=== PATIENT | male | born 1965 | race Caucasian/White ===

== ENCOUNTER 2023-06-26 07:51 | Outpatient (OUT) | payer BC, SELFPAY ==
[2023-06-26 08:19] LABS: Hematocrit 42.9 % (42.0-54.0); Hemoglobin 13.9 g/dL (14.0-18.0); Mean Corpuscular HGB Conc 32.4 g/dL (29.9-35.2); Mean Corpuscular Hemoglobin 29.4 pg (25.9-34.0); Mean Corpuscular Volume 90.9 fL (80.0-94.0); Mean Platelet Volume 11.2 fL (9.5-13.5); Platelet Count 157 10^3/uL (150-450); Red Blood Count 4.72 10^6/uL (4.70-6.10); Red Cell Distribution Width 12.5 % (11.0-15.0); White Blood Count 18.4 10^3/uL (4.0-11.0)
[2023-06-26 08:37] LABS: Estimated Average Glucose 278 mg/dL; Glycohemoglobin A1C 11.3 % (4.5-6.2)
[2023-06-26 09:08] LABS: Alanine Aminotransferase 32 U/L (16-63); Albumin Globulin Ratio 1.1; Albumin Level 3.6 g/dL (3.4-5.0); Alkaline Phosphatase 65 U/L (46-116); Anion Gap 12.9; Aspartate Amino Transferase 15 U/L (15-37); BUN Creatinine Ratio 17.4; Calcium 8.8 mg/dL (8.5-10.1); Carbon Dioxide 25.1 mmol/L (21.0-32.0); Chloride 105 mmol/L (98-107); Chol HDL Ratio 3.4; Cholesterol 153 mg/dL (<=200); Estimated GFR (African America >60 (>=60); Estimated GFR (Non-African Ame 53 (>=60); Globulin 3.2 g/dL; Glucose 155 mg/dL (74-106); HDL Cholesterol 45 mg/dL (40-60); Sodium 139 mmol/L (136-145); Thyroid Stimulating Hormone 4.784 uIU/mL (0.358-3.740); Total Protein 6.8 g/dL (6.4-8.2); Triglycerides 70 mg/dL (<=150)
[2023-06-26 09:13] LABS: Prostate Specific Antigen Scrn 0.74 ng/mL (<=4.00)
[2023-06-26 11:37] LABS: Eosinophils Absolute Manual 0.18 10^3/uL (0.00-0.70); Lymphocytes Absolute Manual 13.98 10^3/uL (1.20-3.80); Monocytes Absolute Manual 0.55 10^3/uL (0.30-0.80); Segmented Neut Absolute Manual 3.68 10^3/uL (1.4-6.5); Smudge Cells SEEN
== END 2023-06-26 07:52 | disposition home or self-care (01) ==
PROVIDERS: PCP Family Medicine; Visit Provider Family Medicine
DX: Z00.00 Encounter for general adult medical examination without abnormal findings (principal)
CPT/HCPCS: 36415; 80053; 80061; 83036; 84436; 84443; 84481; 85007; 85027; G0103

== ENCOUNTER 2024-06-26 07:56 | Outpatient (OUT) | payer OTHER, SELFPAY ==
--- OUTSIDE RECORDS SUMMARY | 2024-06-26 08:19 | XMS_ITS | CCD ---
Author Organization [facility] Care Team Providers Care Carbon Cleaner Name Role Phone DR RADHA MENDEZ Admitting Unavailable DR RADHA MENDEZ Attending Unavailable DR RADHA MENDEZ Primary Care Unavailable DR RADHA MENDEZ Consulting Unavailable DR RADHA MENDEZ Admitting Unavailable DR RADHA MENDEZ Attending Unavailable DR RADHA MENDEZ Primary Care Unavailable DR RADHA MENDEZ Consulting Unavailable Allergies Allergy Classification Reported Allergen(s) Allergy Type Date of Onset Reaction(s) Facility (1 source) Cod liver oil Drug allergy (disorder) 02-14-2013 [facility] (1 source) Iodine Drug Allergy 02-14-2013 [facility] (1 source) Shellfish Drug allergy (disorder) 11-28-2013 [facility] (1 source) Sulfonamides (Antibiotic) Drug allergy (disorder) 02-14-2013 [facility] Problems Active Problems Problem Classification Problem Date Documented Da te Episodic/Chronic Chronic kidney disease (1 source) Chronic kidney disease, stage 2 (mild); Translations: [CHRONIC KIDNEY DISEASE STAGE 2 MILD] Onset: 04-15-2022 Chronic Deficiency and other anemia (1 source) Anemia, unspecified; Translations: [ANEMIA UNSPECIFIED] Onset: 04-15-2022 Episodic Diabetes mellitus without complication (1 source) Type 2 diabetes mellitus without complications; Translations: [TYPE 2 DM WITHOUT COMPLICATIONS] Onset: 06-19-2021 Chronic Diabetes mellitus without complication (1 source) Other abnormal glucose; Translations: [OTHER ABNORMAL GLUCOSE] Onset: 04-15-2022 Episodic Leukemias (5 sources) Chronic lymphocytic leukemia of B-cell type not having achieved remission; Translations: [CLL B-CELL TYPE NOT ACHIEVED REMISS] Onset: 06-19-2021 Chronic Past or Other Problems Problem Classification Problem Date Documented Da te Episodic/Chronic Malaise and fatigue (4 sources) Other fatigue; Translations: [OTHER FATIGUE] Onset: 06-09-2021 Episodic Results Test Name Value Interpretation Reference Range Facility CBC W MANUAL DIFFon 04-07-20 ATYPICAL LYMPH # Normal [facility] Comment on above: Performed By: #### C ANÍBAL #### [facility] [address] [place] [address] Dr. Netta Mcneal ATYPICAL LYMPH % Normal [facility] Comment on above: Performed By: #### C ANÍBAL #### [facility] [address] [place] [address] Dr. Netta Mcneal BAND # Normal 0.0-0.3 [facility] Comment on above: Performed By: #### C ANÍBAL #### [facility] [address] [place] [address] Dr. Netta Mcneal BAND % Normal 0-5 [facility] Comment on above: Performed By: #### C ANÍBAL #### [facility] [address] [place] [address] Dr. Netta Mcneal BASOM # 0.00 103/ul Normal 0.00-0.10 [facility] Comment on above: Performed By: #### C ANÍBAL #### [facility] [address] [place] [address] Dr. Netta Mcneal BASOM % 0.0 % Critically low 0.2-2.0 [facility] Comment on above: Performed By: #### C ANÍBAL #### [facility] [address] [place] [address] Dr. Netta Mcneal BLAST # Normal [facility] Comment on above: Performed By: #### C ANÍBAL #### [facility] [address] [place] [address] Dr. Netta Mcneal BLAST % Normal [facility] Comment on above: Performed By: #### C ANÍBAL #### [facility] [address] [place] [address] Dr. Netta Mcneal CORRECTED WBC Normal 4.0-11.0 [facility] Comment on above: Performed By: #### C ANÍBAL #### [facility] [address] [place] [address] Dr. Netta Mcneal EOS # 0.20 103/ul Normal 0.00-0.70 [facility] Comment on above: Performed By: #### C BCKIKI #### [facility] [address] [address] [address] Netta Mcneal EOS% 1.0 % Normal 0.9-7.0 [facility] Comment on above: Performed By: #### C ANÍBAL #### [facility] [address] [address] [address] Netta Mcneal HCT 41.9 % Critically low 42.0-54.0 [facility] Comment on above: Performed By: #### C ANÍBAL #### [facility] [address] [address] [address] Netta Mcneal HGB 14.0 g/dl Normal 14.0-18.0 [facility] Comment on above: Performed By: #### C ANÍBAL #### [facility] [address] [address] [address] Netta Mcneal LYMPHM # 14.43 103/ul Critically high 1.20-3.80 [facility] Comment on above: Performed By: #### C ANÍBAL #### [facility] [address] [address] [address] Netta Mcneal LYMPHM% 74.0 % Critically high 20.5-60.0 [facility] Comment on above: Performed By: #### C ANÍBAL #### [facility] [address] [address] [address] Netta Mcneal MCH 29.9 pg Normal 25.9-34.0 [facility] Comment on above: Performed By: #### C BCKIKI #### [facility] [address] [address] [address] Netta Mcneal MCHC 33.4 g/dl Normal 29.9-35.2 [facility] Comment on above: Performed By: #### C ANÍBAL #### [facility] [address] [address] [address] Netta Mcneal MCV 89.3 fL Normal 80.0-94.0 [facility] Comment on above: Performed By: #### C ANÍBAL #### [facility] [address] [place] [address] Dr. Netta Mcneal METAMYELOCYTE # Normal [facility] Comment on above: Performed By: #### C DIGNAMAN #### [facility] [address] [place] [address] Dr. Netta Mcneal METAMYELOCYTE % Normal [facility] Comment on above: Performed By: #### C ANÍBAL #### [facility] [address] [place] [address] Dr. Netta Mcneal MONOM# 0.58 103/ul Normal 0.30-0.80 [facility] Comment on above: Performed By: #### C ANÍBAL #### [facility] [address] [place] [address] Dr. Netta Mcneal MONOM% 3.0 % Normal 1.7-12.0 [facility] Comment on above: Performed By: #### C ANÍBAL #### [facility] [address] [place] [address] Dr. Netta Mcneal MPV 11.0 fL Normal 9.5-13.5 [facility] Comment on above: Performed By: #### C ANÍBAL #### [facility] [address] [place] [address] Dr. Netta Mcneal MYELOCYTE # Normal [facility] Comment on above: Performed By: #### C ANÍBAL #### [facility] [address] [place] [address] Dr. Netta Mcneal MYELOCYTE % Normal [facility] Comment on above: Performed By: #### C ANÍBAL #### [facility] [address] [place] [address] Dr. Netta Mcneal NRBC Normal [facility] Comment on above: Performed By: #### C ANÍBAL #### [facility] [address] [place] [address] Dr. Netta Mcneal PLT 172 103/ul Normal 150-450 [facility] Comment on above: Performed By: #### C ANÍBAL #### [facility] [address] [place] [address] Dr. Netta Mcneal RBC 4.69 106/ul Critically low 4.70-6.10 [facility] Comment on above: Performed By: #### C BCKIKI #### [facility] [address] [address] [address] Netta Mcneal RDW 13.0 % Normal 11.0-15.0 [facility] Comment on above: Performed By: #### C BCMAN #### [facility] [address] [address] [address] Netta Mcneal SEG # 4.29 103/ul Normal 1.40-6.50 [facility] Comment on above: Performed By: #### C BCKIKI #### [facility] [address] [place] [address] Dr. Netta Mcneal SEG % 22.0 % Critically low 43.0-75.0 [facility] Comment on above: Performed By: #### C ANÍBAL #### [facility] [address] [place] [address] Dr. Netta Mcneal SMUDGE CELLS SEEN Normal [facility] Comment on above: Performed By: #### C BCKIKI #### [facility] [address] [address] [address] Netta Mcneal WBC 19.5 103/ul Critically high 4.0-11.0 [facility] Comment on above: Performed By: #### C BCKIKI #### [facility] [address] [address] [address] Netta Mcneal FREE THYROXINE INDEX T7on FTI 2.51 Normal 1.30-4.50 [facility] Comment on above: Performed By: #### C MP, T7, TSH #### [facility] [address] [address] [address] Netta Mcneal T3U 38.0 % Normal 33.0-40.0 [facility] Comment on above: Performed By: #### C MP, T7, TSH #### [facility] [address] [address] [address] Netta Mcneal T4 [Mass/Vol] 6.60 ug/dL Normal 4.50-12.10 [facility] Comment on above: Performed By: #### C MP, T7, TSH #### [facility] [address] [address] [address] Netta Mcneal GLYCOHEMOGLOBIN A1Con 2021 ADA RECOMMENDATION SEE BELOW Normal [facility] Comment on above: Result Comment: ADA RECOMMENDED LIMIT 4.0 - 6.0 ADA THERAPEUTIC TARGET < 7.0 ACTION SUGGESTED > 7.0 Performed By: #### A 1C #### [facility] [address] [address] [address] Netta Mcneal Glucose [Mass/Vol] 269 mg/dL Normal [facility] Comment on above: Performed By: #### A 1C #### [facility] [address] [place] [address] Dr. Netta Mcneal HbA1c (Bld) [Mass fraction] 11.0 % Critically high 4.5-6.2 [facility] Comment on above: Performed By: #### A 1C #### [facility] [address] [place] [address] Dr. Netta Mcneal IRONon 04-07-2022 Iron [Mass/Vol] 76.0 ug/dL Normal 65.0-175.0 [facility] Comment on above: Performed By: #### I VERNON #### [facility] [address] [place] [address] Dr. Netta Mcneal PROF 14(COMP METB)on 022 Albumin [Mass/Vol] 3.8 g/dL Normal 3.4-5.0 [facility] Comment on above: Performed By: #### C MP, T7, TSH #### [facility] [address] [address] [address] Netta Mcneal Albumin/Globulin [Mass ratio] 1.3 {ratio} Normal [facility] Comment on above: Performed By: #### C MP, T7, TSH #### [facility] [address] [address] [address] Netta Mcneal ALP [Catalytic activity/Vol] 63 U/L Normal 46-116 [facility] Comment on above: Performed By: #### C MP, T7, TSH #### [facility] [address] [address] [address] Netta Mcneal ALT [Catalytic activity/Vol] 30 U/L Normal 16-63 [facility] Comment on above: Performed By: #### C MP, T7, TSH #### [facility] [address] [address] [address] Netta Mcneal Anion gap [Moles/Vol] 13.4 mmol/L Normal [facility] Comment on above: Performed By: #### C MP, T7, TSH #### [facility] [address] [address] [address] Netta Mcneal AST [Catalytic activity/Vol] 18 U/L Normal 15-37 [facility] Comment on above: Performed By: #### C MP, T7, TSH #### [facility] [address] [place] [address] Dr. Netta Mcneal Bilirubin [Mass/Vol] 0.8 mg/dL Normal 0.2-1.0 [facility] Comment on above: Performed By: #### C MP, T7, TSH #### [facility] [address] [address] [address] Netta Mcneal Calcium [Mass/Vol] 8.8 mg/dL Normal 8.5-10.1 [facility] Comment on above: Performed By: #### C MP, T7, TSH #### [facility] [address] [address] [address] Netta Mcneal Chloride [Moles/Vol] 104 mmol/L Normal 98-107 [facility] Comment on above: Performed By: #### C MP, T7, TSH #### [facility] [address] [address] [address] Netta Mcneal CO2 [Moles/Vol] 25.7 mmol/L Normal 21.0-32.0 [facility] Comment on above: Performed By: #### C MP, T7, TSH #### [facility] [address] [address] [address] Netta Mcneal Creatinine [Mass/Vol] 1.13 mg/dL Normal 0.70-1.30 [facility] Comment on above: Performed By: #### C MP, T7, TSH #### [facility] [address] [address] [address] Netta Mcneal EGFR-AF LAO >60 Normal >=60 [facility] Comment on above: Performed By: #### C MP, T7, TSH #### [facility] [address] [address] [address] Netta Mcneal EGFR-NON AF LAO >60 Normal >=60 [facility] Comment on above: Performed By: #### C MP, T7, TSH #### [facility] [address] [address] [address] Netta Mcneal Globulin (S) [Mass/Vol] 3.0 g/dL Normal [facility] Comment on above: Performed By: #### C MP, T7, TSH #### [facility] [address] [address] [address] Netta Mcneal Glucose [Mass/Vol] 207 mg/dL Critically high 74-106 [facility] Comment on above: Performed By: #### C MP, T7, TSH #### [facility] [address] [address] [address] Netta Mcneal Potassium [Moles/Vol] 4.1 mmol/L Normal 3.5-5.1 [facility] Comment on above: Performed By: #### C MP, T7, TSH #### [facility] [address] [address] [address] Netta Mcneal Protein [Mass/Vol] 6.8 g/dL Normal 6.4-8.2 [facility] Comment on above: Performed By: #### C MP, T7, TSH #### [facility] [address] [address] [address] Netta Mcneal Sodium [Moles/Vol] 139 mmol/L Normal 136-145 [facility] Comment on above: Performed By: #### C MP, T7, TSH #### [facility] [address] [address] [address] Netta Mcneal Urea nitrogen [Mass/Vol] 19.0 mg/dL Critically high 7.0-18.0 [facility] Comment on above: Performed By: #### C MP, T7, TSH #### [facility] [address] [address] [address] Netta Mcneal Urea nitrogen/Creatinine [Mass ratio] 16.8 mg/mg Normal [facility] Comment on above: Performed By: #### C MP, T7, TSH #### [facility] [address] [address] [address] Netta Mcneal TSHon 04-07-2022 TSH 3.469 uIU/mL Normal 0.358-3.740 [facility] Comment on above: Performed By: #### C MP, T7, TSH #### [facility] [address] [place] [address] Dr. Netta Mcneal CBC W MANUAL DIFFon 06-09-19 22 ATYPICAL LYMPH # 3.05 103/ul Normal [facility] Comment on above: Performed By: #### P ERSMR, CBCMAN #### [facility] [address] [place] [address] Dr. Netta Mcneal ATYPICAL LYMPH % 14 % Normal [facility] Comment on above: Performed By: #### P ERSMR, CBCMAN #### [facility] [address] [place] [address] Dr. Netta Mcneal BAND # Normal 0.0-0.3 [facility] Comment on above: Performed By: #### P ERSMR, CBCMAN #### [facility] [address] [place] [address] Dr. Netta Mcneal BAND % Normal 0-5 [facility] Comment on above: Performed By: #### P ERSMR, CBCMAN #### [facility] [address] [place] [address] Dr. Netta Mcneal BASOM # 0.00 103/ul Normal 0.00-0.10 [facility] Comment on above: Performed By: #### P ERSMR, CBCMAN #### [facility] [address] [place] [address] Dr. Netta Mcneal BASOM % 0.0 % Critically low 0.2-2.0 [facility] Comment on above: Performed By: #### P ERSMR, CBCMAN #### [facility] [address] [address] [address] Netta Mcneal BLAST # Normal [facility] Comment on above: Performed By: #### P ERSMR, CBCMAN #### [facility] [address] [address] [address] Netta Mcneal BLAST % Normal [facility] Comment on above: Performed By: #### P ERSMR, CBCMAN #### [facility] [address] [address] [address] Netta Mcneal CORRECTED WBC Normal 4.0-11.0 [facility] Comment on above: Performed By: #### P ERSMR, CBCMAN #### [facility] [address] [place] [address] Dr. Netta Mcneal EOS # 0.44 103/ul Normal 0.00-0.70 [facility] Comment on above: Performed By: #### P ERSMR, CBCMAN #### [facility] [address] [place] [address] Dr. Netta Mcneal EOS% 2.0 % Normal 0.9-7.0 [facility] Comment on above: Performed By: #### P ERSMR, CBCMAN #### [facility] [address] [place] [address] Dr. Netta Mcneal HCT 42.4 % Normal 42.0-54.0 [facility] Comment on above: Performed By: #### P ERSMR, CBCMAN #### [facility] [address] [place] [address] Dr. Netta Mcneal HGB 14.4 g/dl Normal 14.0-18.0 [facility] Comment on above: Performed By: #### P ERSMR, CBCMAN #### [facility] [address] [place] [address] Dr. Netta Mcneal LYMPHM # 13.08 103/ul Critically high 1.20-3.80 [facility] Comment on above: Performed By: #### P ERSMR, CBCMAN #### [facility] [address] [address] [address] Netta Mcneal LYMPHM% 60.0 % Normal 20.5-60.0 [facility] Comment on above: Performed By: #### P ERSMR, CBCMAN #### [facility] [address] [address] [address] Netta Mcneal MCH 30.6 pg Normal 25.9-34.0 [facility] Comment on above: Performed By: #### P ERSMR, CBCMAN #### [facility] [address] [address] [address] Netta Mcneal MCHC 34.0 g/dl Normal 29.9-35.2 [facility] Comment on above: Performed By: #### P ERSMR, CBCMAN #### [facility] [address] [address] [address] Netta Mcneal MCV 90.2 fL Normal 80.0-94.0 [facility] Comment on above: Performed By: #### P ERSMR, CBCMAN #### [facility] [address] [address] [address] Netta Mcneal METAMYELOCYTE # Normal [facility] Comment on above: Performed By: #### P ERSMR, CBCMAN #### [facility] [address] [address] [address] Netta Mcneal METAMYELOCYTE % Normal [facility] Comment on above: Performed By: #### P ERSMR, CBCMAN #### [facility] [address] [address] [address] Netta Mcneal MONOM# 0.44 103/ul Normal 0.30-0.80 [facility] Comment on above: Performed By: #### P ERSMR, CBCMAN #### [facility] [address] [address] [address] Netta Mcneal MONOM% 2.0 % Normal 1.7-12.0 [facility] Comment on above: Performed By: #### P ERSMR, CBCMAN #### [facility] [address] [address] [address] Netta Mcneal MPV 11.1 fL Normal 9.5-13.5 [facility] Comment on above: Performed By: #### P ERSMR, CBCMAN #### [facility] [address] [address] [address] Netta Mcneal MYELOCYTE # Normal [facility] Comment on above: Performed By: #### P ERSMR, CBCMAN #### [facility] [address] [address] [address] Netta Mcneal MYELOCYTE % Normal [facility] Comment on above: Performed By: #### P ERSMR, CBCMAN #### [facility] [address] [address] [address] Netta Mcneal NRBC Normal [facility] Comment on above: Performed By: #### P ERSMR, CBCMAN #### [facility] [address] [address] [address] Netta Mcneal PLT 164 103/ul Normal 150-450 [facility] Comment on above: Performed By: #### P ERSMR, CBCMAN #### [facility] [address] [address] [address] Netta Mcneal RBC 4.70 106/ul Normal 4.70-6.10 [facility] Comment on above: Performed By: #### P ERSMR, CBCMAN #### [facility] [address] [address] [address] Netta Mcneal RDW 12.4 % Normal 11.0-15.0 [facility] Comment on above: Performed By: #### P ERSMR, CBCMAN #### [facility] [address] [address] [address] Netta Mcneal SEG # 4.80 103/ul Normal 1.40-6.50 [facility] Comment on above: Performed By: #### P ERSMR, CBCMAN #### [facility] [address] [place] [address] Dr. Netta Mcneal SEG % 22.0 % Critically low 43.0-75.0 [facility] Comment on above: Performed By: #### P ERSMR, CBCMAN #### [facility] [address] [address] [address] Netta Mcneal WBC 21.8 103/ul Critically high 4.0-11.0 [facility] Comment on above: Performed By: #### P ERSMR, CBCMAN #### [facility] [address] [address] [address] Netta Mcneal GLYCOHEMOGLOBIN A1Con 2021 ADA RECOMMENDATION ADA THERAPEUTIC TARG ET 6.0 - 7.0 ACTION SUGGESTED > 7.0 Normal [facility] Comment on above: Performed By: #### A 1C #### [facility] [address] [address] [address] Netta Mcneal Glucose [Mass/Vol] 226 mg/dL Normal [facility] Comment on above: Performed By: #### A 1C #### [facility] [address] [place] [address] Dr. Netta Mcneal HbA1c (Bld) [Mass fraction] 9.5 % Critically high <=6.0 [facility] Comment on above: Performed By: #### A 1C #### [facility] [address] [address] [address] Netta Mcneal PERIPHERAL SMEARon 2 Pathologist Cyto stain Nom (Cvx/Vag) [ID] DR. ARMINDA BRYAN Normal [facility] Comment on above: Result Comment: REVI EW OF PERIPHERAL SMEAR REVEALS NORMAL RBCS AND PLATELETS. THERE IS LEUKOCYTOSIS WITH LYMPHOCYTOSIS. THE LYMPHOCYTES HAVE SOME REACTIVE CHANGES, HOWEVER, IF REACTIVE CAUSES ARE EXCLUDED AND/OR LYMPHOCYTOSIS PERSISTS, FURTHER EVALUATION WITH FLOW CYTOMETRIC ANALYSIS OF PERIPHERAL BLOOD IS RECOMMENDED TO EVALUATE FOR A CHRONIC LYMPHOPROLIFERATIVE DISORDER. NO IMMATURE BLASTS ARE SEEN. CLINICAL CORRELATION IS RECOMMENDED. CPT: 26611 Performed By: #### P ERSMR, CBCKIKI #### [facility] [address] [place] [address] Dr. Netta Mcneal PROF 14(COMP METB)on 022 Albumin [Mass/Vol] 3.9 g/dL Normal 3.5-5.0 [facility] Comment on above: Performed By: #### C MP #### [facility] [address] [place] [address] Dr. Netta Mcneal Albumin/Globulin [Mass ratio] 1.3 {ratio} Normal [facility] Comment on above: Performed By: #### C MP #### [facility] [address] [place] [address] Dr. Netta Mcneal ALP [Catalytic activity/Vol] 66 U/L Normal 38-126 [facility] Comment on above: Performed By: #### C MP #### [facility] [address] [place] [address] Dr. Netta Mcneal ALT [Catalytic activity/Vol] 31 U/L Normal 21-72 [facility] Comment on above: Performed By: #### C MP #### [facility] [address] [place] [address] Dr. Netta Mcneal Anion gap [Moles/Vol] 10.8 mmol/L Normal [facility] Comment on above: Performed By: #### C MP #### [facility] [address] [place] [address] Dr. Netta Mcneal AST [Catalytic activity/Vol] 16 U/L Critically low 17-59 [facility] Comment on above: Performed By: #### C MP #### [facility] [address] [place] [address] Dr. Netta Mcneal Bilirubin [Mass/Vol] 1.0 mg/dL Normal 0.2-1.3 [facility] Comment on above: Performed By: #### C MP #### [facility] [address] [place] [address] Dr. Netta Mcneal Calcium [Mass/Vol] 8.6 mg/dL Normal 8.4-10.2 [facility] Comment on above: Performed By: #### C MP #### [facility] [address] [place] [address] Dr. Netta Mcneal Chloride [Moles/Vol] 105 mmol/L Normal 98-107 [facility] Comment on above: Performed By: #### C MP #### [facility] [address] [place] [address] Dr. Netta Mcneal CO2 [Moles/Vol] 26.9 mmol/L Normal 22.0-30.0 [facility] Comment on above: Performed By: #### C MP #### [facility] [address] [place] [address] Dr. Netta Mcneal Creatinine [Mass/Vol] 1.09 mg/dL Normal 0.66-1.25 [facility] Comment on above: Performed By: #### C MP #### [facility] [address] [place] [address] Dr. Netta Mcneal EGFR-AF LAO >60 Normal >=60 [facility] Comment on above: Performed By: #### C MP #### [facility] [address] [address] [address] Netta Mcneal EGFR-NON AF LAO >60 Normal >=60 [facility] Comment on above: Performed By: #### C MP #### [facility] [address] [place] [address] Dr. Netta Mcneal Globulin (S) [Mass/Vol] 3.0 g/dL Normal [facility] Comment on above: Performed By: #### C MP #### [facility] [address] [place] [address] Dr. Netta Mcneal Glucose [Mass/Vol] 131 mg/dL Critically high 74-106 [facility] Comment on above: Performed By: #### C MP #### [facility] [address] [place] [address] Dr. Netta Mcneal Potassium [Moles/Vol] 3.7 mmol/L Normal 3.4-5.0 [facility] Comment on above: Performed By: #### C MP #### [facility] [address] [place] [address] Dr. Netta Mcneal Protein [Mass/Vol] 6.9 g/dL Normal 6.1-8.2 [facility] Comment on above: Performed By: #### C MP #### [facility] [address] [place] [address] Dr. Netta Mcneal Sodium [Moles/Vol] 139 mmol/L Normal 137-145 [facility] Comment on above: Performed By: #### C MP #### [facility] [address] [place], [place] [address] Dr. Netta Mcneal Urea nitrogen [Mass/Vol] 18.0 mg/dL Normal 9.0-20.0 [facility] Comment on above: Performed By: #### C MP #### [facility] [address] [place], [place] [address] Dr. Netta Mcneal Urea nitrogen/Creatinine [Mass ratio] 16.5 mg/mg Normal [facility] Comment on above: Performed By: #### C MP #### [facility] [address] [place], [place] [address] Dr. Netta Mcneal Encounters Encounter Date Encounter Type Care Provider Facility Start: 04-07-2022 End: 04-08-[address] RADHA MENDEZ Facility: Start: 06-09-2021 End: 06-09-[address] RADHA MENDEZ Facility:[facility] Payers Date Payer Category Payer Unknown [id number] 1965 Unknown [id number] 1960 Unknown [id number] 1960 Unknown [id number] Summary Purpose Family History No Family History Records Found Advance Directives No Advanced Directives Records Found Additional Source Comments (unrecognized sect ion and content) No Status Records Found INFORMATION SOURCE (unrecogn ized section and content) DATE CREATED AUTHOR 04/15/2022 [facility] FOR RECORDS PERTAINING TO PATIENTS WHO ARE OR HAVE BEEN ENROLLED IN A CHEMICAL DEPENDENCY/SUBSTANCEABUSE PROGRAM, SOME INFORMATION MAY BE OMITTED. This clinical summary was aggregated from multiple sources. Caution should be exercised in using it in the provision of clinical care. This summary normalizes information from multiple sources, and as a consequence, information in this document may materially change the coding, format and clinical context of patient data. In addition, data may be omitted in some cases. CLINICAL DECISIONS SHOULD BE BASED ON THE PRIMARY CLINICAL RECORDS. [facility] [employer] [facility]. provides no warranty or guarantee of the accuracy or completeness of information in this document.
[2024-06-26 08:21] LABS: Basophils Absolute Auto 0.1 10^3/uL (0.0-0.1); Basophils Percent Auto 0.3 % (0.2-2.0); Eosinophils Absolute Auto 0.2 10^3/uL (0.0-0.7); Eosinophils Percent Auto 0.9 % (0.9-7.0); Hematocrit 43.4 % (42.0-54.0); Hemoglobin 14.7 g/dL (14.0-18.0); Immature Granulocytes Abs Auto 0.09 10^3/uL (0.00-0.03); Immature Granulocytes Pct Auto 0.4 % (0.0-0.5); Lymphocytes Absolute Auto 15.8 10^3/uL (1.2-3.8); Lymphocytes Percent Auto 72.8 % (20.5-60.0); Mean Corpuscular HGB Conc 33.9 g/dL (29.9-35.2); Mean Corpuscular Hemoglobin 30.3 pg (25.9-34.0); Mean Corpuscular Volume 89.5 fL (80.0-94.0); Mean Platelet Volume 11.6 fL (9.5-13.5); Monocytes Absolute Auto 0.8 10^3/uL (0.3-0.8); Monocytes Percent Auto 3.8 % (1.7-12.0); Neutrophils Absolute Auto 4.7 10^3/uL (1.4-6.5); Neutrophils Percent Auto 21.8 % (43.0-75.0); Platelet Count 163 10^3/uL (150-450); Red Blood Count 4.85 10^6/uL (4.70-6.10); Red Cell Distribution Width 12.5 % (11.0-15.0); White Blood Count 21.6 10^3/uL (4.0-11.0)
[2024-06-26 09:55] LABS: Alanine Aminotransferase 24 U/L (16-63); Albumin Globulin Ratio 1.3; Albumin Level 3.9 g/dL (3.4-5.0); Alkaline Phosphatase 75 U/L (46-116); Anion Gap 14.6; Aspartate Amino Transferase 16 U/L (15-37); BUN Creatinine Ratio 16.6; Bilirubin Total 0.8 mg/dL (0.2-1.0); Calcium 9.2 mg/dL (8.5-10.1); Carbon Dioxide 26.4 mmol/L (21.0-32.0); Chloride 102 mmol/L (98-107); Chol HDL Ratio 3.5; Cholesterol 173 mg/dL (<=200); Estimated GFR (African America >60 (>=60 mL/min/1.73m^2); Estimated GFR (Non-African Ame 50 (>=60 mL/min/1.73m^2); Globulin 2.9 g/dL; Glucose 253 mg/dL (74-106); HDL Cholesterol 50 mg/dL (40-60); Sodium 139 mmol/L (136-145); Thyroid Stimulating Hormone 3.613 uIU/mL (0.358-3.740); Total Protein 6.8 g/dL (6.4-8.2); Triglycerides 100 mg/dL (<=150)
[2024-06-26 10:02] LABS: Prostate Specific Antigen Scrn 0.67 ng/mL (<=4.00)
[2024-06-26 10:10] LABS: Estimated Average Glucose 280 mg/dL; Glycohemoglobin A1C 11.4 % (4.5-6.2)
== END 2024-06-26 07:57 | disposition home or self-care (01) ==
LOC: LAB 07:59
PROVIDERS: PCP Family Medicine; Visit Provider Family Medicine
DX: Z00.00 Encounter for general adult medical examination without abnormal findings (principal); E78.5 Hyperlipidemia, unspecified; R73.09 Other abnormal glucose; E03.9 Hypothyroidism, unspecified
CPT/HCPCS: 36415; 80053; 80061; 83036; 84436; 84443; 84481; 85025; G0103